=== PATIENT | male | born 1985 | race Caucasian/White ===

== ENCOUNTER 2018-04-11 22:22 | Emergency (ER) | payer SELFPAY ==
[~2018-04-11] VITALS: Ht 167.6 cm; Wt 79.6 kg
[~2018-04-11 22:22] MED LIST: ACHD5005 PO; AMOX500C2 PO; CLIN150C17 PO; HYDR-34 PO; HYDR-757 PO; HYOS0.1217 PO; IBP200T; KETO-22 PO; L.AC1CAP6 PO; NAPR-1073 PO; NAPR-243 PO; ONDA-42 SL; ONDA8TAB13 PO; PHEN-633 PO; PRD20T PO; SULF1TAB7 PO; XANAX; norflex PO
--- OUTSIDE RECORDS SUMMARY | 2018-04-11 22:27 | XMS REPORT ---
Author Author VINAY CARD [facility] eClinicalWorks Address Unknown Phone Unavailable Care Team Providers Care Cable Maintainer Name Role Phone VINAY CARD CP Unavailable Allergies, Adverse Reactions, Alerts Substance Reaction Event Type Tramadol Info Not Available Drug Allergy Problems Problem Type Condition ICD-9 Code Onset Dates Condition Status Problem Influenza with other respiratory manifestations 487.1 Active Problem Unspecified hemorrhoids without mention of complication 455.6 Active Problem Left shoulder pain 719.41 Active Problem Unspecified constipation 564.00 Active Assessment Left shoulder pain 719.41 Active Medications Medication Code System Code Instructions Start Date End Date Status Dosage Motrin [facility] [address]-95 800 mg Orally 3 times a day as needed for pain Jul 08, 2015 Aug 07, 2015 as directed Medrol (Vu) [facility] [address]-39 4 MG Orally daily as directed Jul 08, 2015 Jul 14, 2015 as directed Procedures Procedure Coding System Code Date Office Visit, Est Pt., Level 3 CPT-4 57459 Jul 08, 2015 Vital Signs Date/Time: Jul 08, 2015 Temperature 99.2 F Weight 166.2 lbs Height 66 in BMI 26.82 Index Blood Pressure Diastolic 70 mmHg Blood Pressure Systolic 120 mmHg Cardiac Monitoring Heart Rate 86 bpm Results No Known Results Summary Purpose eClinicalWorks Submission
[2018-04-11] MEDS ORDERED: KETOROLAC 60 MG/2 ML VIAL IM ONE (22:45)
[2018-04-11] MEDS ORDERED: RX-HYDROCODONE/APAP 5/325 MG #4 TAB PK PO PRN (22:45)
[2018-04-11] MEDS ORDERED: ACHD5005 PO (22:49)
[2018-04-11] MEDS ORDERED: SILV20CR14 TP (22:49)
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
[2018-04-11 23:06] VITALS: BP 129/92
== END 2018-04-11 23:06 | disposition home or self-care (01) ==
LOC: EDUNIT# 22:22 → ER 22:24
DX: T22.211A Burn of second degree of right forearm, initial encounter (principal); T22.131A Burn of first degree of right upper arm, initial encounter; T24.101A Burn of first degree of unspecified site of right lower limb, except ankle and foot, initial encounter; T31.0 Burns involving less than 10% of body surface; F41.9 Anxiety disorder, unspecified; G40.909 Epilepsy, unspecified, not intractable, without status epilepticus; F17.210 Nicotine dependence, cigarettes, uncomplicated; Z98.890 Other specified postprocedural states; Z88.6 Allergy status to analgesic agent; X08.8XXA Exposure to other specified smoke, fire and flames, initial encounter
CPT/HCPCS: 96372; 99284

== ENCOUNTER 2018-06-12 09:18 | Emergency (ER) | payer SELFPAY ==
[~2018-06-12] VITALS: Ht 170.2 cm; Wt 83.9 kg
[~2018-06-12 09:18] MED LIST changes: +SILV20CR14 TP
[2018-06-12] MEDS ORDERED: FLUORESCEIN (FLUOR-I-STRIPS) 1 MG STRP OU ONE (09:45)
[2018-06-12] MEDS ORDERED: TETRACAINE 0.5% OPHTH SOLN 4 ML BTL (SINGLE DOSE ONLY) OU ONE (09:45)
[2018-06-12] MEDS ORDERED: BSS 15 ML IR ONE (09:45)
[2018-06-12] MEDS ORDERED: RX-GENTAMICIN 0.3% OP OINT 3.5 GM TUBE OP STA (10:00)
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
[2018-06-12 10:14] VITALS: BP 137/90
== END 2018-06-12 10:14 | disposition home or self-care (01) ==
LOC: EDUNIT# 09:18 → ER 09:20
DX: S05.01XA Injury of conjunctiva and corneal abrasion without foreign body, right eye, initial encounter (principal); F41.9 Anxiety disorder, unspecified; G40.909 Epilepsy, unspecified, not intractable, without status epilepticus; F12.10 Cannabis abuse, uncomplicated; Z86.14 Personal history of Methicillin resistant Staphylococcus aureus infection; Z88.6 Allergy status to analgesic agent
CPT/HCPCS: 99282

== ENCOUNTER 2019-05-17 12:43 | Emergency (ER) | payer MEDICAID ==
[~2019-05-17] VITALS: Ht 170.2 cm; Wt 77.3 kg
[~2019-05-17 12:43] MED LIST changes: +HYDR-4226 PO; -HYDR-757 PO
[2019-05-17] MEDS ORDERED: TETANUS,DIPTH,PERTUSS P/F (BOOSTRIX) 0.5 ML VIAL IM ONE (13:00)
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
[2019-05-17] MEDS ORDERED: SULF1TAB35 PO (13:08)
[2019-05-17 13:17] VITALS: BP 140/85
== END 2019-05-17 13:16 | disposition home or self-care (01) ==
LOC: EDUNIT# 12:43 → ER 12:44
DX: S61.031A Puncture wound without foreign body of right thumb without damage to nail, initial encounter (principal); R25.1 Tremor, unspecified; F41.9 Anxiety disorder, unspecified; Z88.5 Allergy status to narcotic agent; Z77.22 Contact with and (suspected) exposure to environmental tobacco smoke (acute) (chronic); W26.8XXA Contact with other sharp object(s), not elsewhere classified, initial encounter
CPT/HCPCS: 90715; 99284